=== PATIENT | male | born 1980 | race Caucasian/White ===

== ENCOUNTER 2016-10-16 15:00 | Emergency (ER) | payer BC ==
--- NOTE | 2016-10-16 17:15 | UC ---
Elbow Pain - HPI Summary HPI Summary: 36 male presents with complaints of left elbow pain, redness, tenderness, and swelling that began yesterday and worsened today. Patient states he has never had anything like this before. Denies fever. Admits to some fatigue. No other joint aches/pain out of the norm. Also states he noticed a lump in anus that he can feel for the past 2 weeks. Patient denies any bleeding, drainage or pain. He wants to make sure it is not a tick. Has not taken medication for either complaint. Has not had any relief. No PMHx. No other complaints. - History of Current Complaint Hx Obtained From: Patient Onset/Duration: Days - 2, Atraumatic, Still Present, Worse Since Severity Initially: Mild Severity Currently: Moderate Pain Intensity: 5 Pain Scale Used: 0-10 Numeric Location Of Pain: Is Discrete @ - left elbow Character: Aching Aggravating Factor(s): Movement Alleviating Factor(s): Rest Associated Signs And Symptoms: Positive: Swelling, Redness - warm to touch <Madelin Vieira - Last Filed: 10/17/16 19:06> <Sarai Kelley - Last Filed: 10/18/16 14:45> - History of Current Complaint Chief Complaint: UCUpperExtremity Stated Complaint: LT ELBOW COMPLAINT Time Seen by Provider: 10/16/16 16:57 - Allergies/Home Medications Allergies/Adverse Reactions: Allergies Allergy/AdvReac Type Severity Reaction Status Date / Time No Known Allergies Allergy Verified 10/16/16 15:06 PMH/Surg Hx/FS Hx/Imm Hx - Additional Past Medical History Additional PMH: Denies PMHx: no htn, diabetes, asthma, history of gout, arthritis, or septic arthritis - Surgical History Surgical History: None - Family History Known Family History: Positive: None - Social History Alcohol Use: Weekly Substance Use Type: None Smoking Status (MU): Never Smoked Tobacco <Madelin Vieira - Last Filed: 10/17/16 19:06> Review of Systems Constitutional: Fatigue Skin: Other - redness, swelling, pain, warmth Respiratory: Negative Cardiovascular: Negative Gastrointestinal: Negative Motor: Negative Musculoskeletal: Arthralgia, Edema - left elbow, Myalgia Neurological: Negative All Other Systems Reviewed And Are Negative: Yes <Madelin Vieira - Last Filed: 10/17/16 19:06> Physical Exam Triage Information Reviewed: Yes Appearance: Well-Appearing, Well-Nourished, Pain Distress - mild with palpation or movement/pressure on left elbow Vital Signs: Initial Vital Signs Temp 99.3 F 10/16/16 15:03 Pulse 89 10/16/16 15:03 Resp 16 10/16/16 15:03 BP 110/80 10/16/16 15:03 Pulse Ox 100 10/16/16 15:03 Vital Signs Reviewed: Yes Eyes: Positive: Conjunctiva Clear ENT: Positive: Hearing grossly normal Neck: Positive: Supple, Nontender, No Lymphadenopathy Respiratory: Positive: Chest non-tender, Lungs clear, Normal breath sounds, No respiratory distress, No accessory muscle use Cardiovascular: Positive: RRR, No Murmur, Pulses Normal - 2+, Brisk Capillary Refill Musculoskeletal: Positive: Strength Intact, ROM Intact - causes some pain, Edema @ - at left elbow significant when compared to right, appears to be septic bursitis, erythematous surrounding elbow, no red streaks or spreading cellulitis proximal/distal arm. warm, tender to touch Neurological: Positive: Alert - sensation intact, Muscle Tone Normal Psychological: Positive: Age Appropriate Behavior Skin: Positive: Other - noted above, erythema, warm, tender, edematous left elbow. also examined anus due to complaint, appear to be an uncomplicated external hemmorrhoid. no concern no bleeding. <Madelin Vieira - Last Filed: 10/17/16 19:06> Vital Signs: Initial Vital Signs Temp 99.3 F 10/16/16 15:03 Pulse 89 10/16/16 15:03 Resp 16 10/16/16 15:03 BP 110/80 10/16/16 15:03 Pulse Ox 100 10/16/16 15:03 <Sarai Kelley - Last Filed: 10/18/16 14:45> Diagnostics - Radiology left elbow Xray Interpretation: Positive (See Comments) - severe dorsal soft tissue swelling which while nonspecific may represent cellulitis or olecranon bursitis Radiology Interpretation Completed By: Radiologist <Madelin Vieira - Last Filed: 10/17/16 19:06> Elbow Pain Course/Dx - Course Course Of Treatment: x-ray obtained and showed soft tissue swelling suggestive of cellulitis versus olecranon bursitis. Due to PE findings: applied kyara bandage for compression, ibuprofen for pain. continue at home. did not drain at this time due to complication and infection. follow up with orthopedics. given antibiotics. aware of worsening signs and symptoms. follow up pcp. - Differential Dx/Diagnosis Differential Diagnosis/HQI/PQRI: Bursitis, Cellulitis, Fracture (Closed), Sprain , Strain Provider Diagnoses: olecranon bursitis-septic, cellulitis left elbow - Physician Notification/Consults Discussed Patient Care With: Dr Kelley <Madelin Vieira - Last Filed: 10/17/16 19:06> Discharge <Madelin Vieira - Last Filed: 10/17/16 19:06> <Sarai Kelley - Last Filed: 10/18/16 14:45> - Discharge Plan Condition: Stable Disposition: HOME Prescriptions: Cephalexin CAP* [Keflex CAP*] 500 mg PO BID #20 cap Sulfamethox/Trimethoprim DS* [Bactrim DS 800/160 TAB*] 1 tab PO BID #20 tab Patient Education Materials: Elbow Bursitis (ED) Referrals: Bo Conrad MD [Primary Care Provider] - Benitez Lee MD [Medical Doctor] - Additional Instructions: Take medication as directed. Ibuprofen for pain and swelling. Wear kyara bandage for compression. Make an appointment with ortho to have aspirated and further evaluation as discussed. If you develop fever/chills, worsening redness, pain and swelling please seek medical attention immediately and go straight to ER. Follow up with PCP. Attestation Statement User Type: Provider - I was available for consult. This patient was seen by the [facility]. The patient was not presented to, seen by, or examined by me. -Ricci <Sarai Kelley - Last Filed: 10/18/16 14:45>
[2016-10-16] MEDS ORDERED: Ibuprofen TAB* 400 MG PO ONE ×2 (17:40→18:07)
[2016-10-16 17:47] VITALS: BP 150/93
--- NOTE | 2016-10-16 18:19 | RAD ---
INDICATION: LEFT elbow pain, swelling, redness, warmth for 2 days without preceding injury. Pain with supination. COMPARISON: No relevant prior exams available on the [facility] [place] [facility] PACS for comparison. TECHNIQUE: AP, lateral, and oblique views LEFT elbow. REPORT: Negative for fat pad displacement to indicate effusion. Negative for fracture or malalignment. Preserved joint spaces. Severe dorsal soft tissue swelling. IMPRESSION: Severe dorsal soft tissue swelling which while nonspecific may represent cellulitis or olecranon bursitis.
== END 2016-10-16 18:28 | disposition home or self-care (01) ==
LOC: UCEAST 15:00
DX: A41.9 Sepsis, unspecified organism (principal); M70.22 Olecranon bursitis, left elbow; L03.114 Cellulitis of left upper limb
CPT/HCPCS: 99202; A9270-GY; G0463